=== PATIENT | female | born 1960 | race Caucasian/White ===

== ENCOUNTER → 2024-01-08 11:36 | Outpatient (REF) | payer OTHER, SELFPAY | LOC: HWWDC 11:36 | PROVIDERS: ATTENDING PHYSICIAN Nurse Practitioner Family; FAMILY PHYSICIAN Physician Assistant Medical | DX: Z12.31 Encounter for screening mammogram for malignant neoplasm of breast (principal) | CPT/HCPCS: 77063; 77067 ==

== ENCOUNTER 2024-12-15 09:21 | Emergency (ER) | payer OTHER, SELFPAY ==
[2024-12-15 09:25] VITALS: BP 144/95
[2024-12-15 09:54] VITALS: BMI 23.9
--- NOTE | 2024-12-15 10:28 | ED.GENMED ---
History of Present Illness
<Luzma Schaefer PA-C - Last Filed: 12/15/24 17:57>
General
Chief Complaint: Back Pain
Source: patient
Exam Limitations: none
Time Seen by Provider: 12/15/24 10:12
Nursing documentation reviewed up to this point in time: agreed with
History of Present Illness
History of Present Illness:
64-year-old female with a past medical history of hypertension, GERD present Emergency Department today with concerns of atraumatic left hip and back pain past 3 days patient reports that on Friday, she for started noticing pain in her left buttock.
Patient reports that the pain progressed and she felt it in her low back she also the pain radiate down her thigh. Occasionally, she feels the pain right down to her toes on that side. She describes the pain as a stabbing sensation. She states
that she has taken extra strength Tylenol did not touch the pain. She has never had pain like this before. She said it may be sciatica. She has no pain on the posing side. She is the inside injury. She denies any chest pain as of breath. She
denies any weakness in her lower extremities. Patient states that she lives alone and presents for a half states that she can barely walk without severe pain. She had to call EMS in order to get herself to the emergency room and felt in too much
pain to drive herself. She denies any fevers or chills. She has had no burning with urination, no hematuria.
Past History
<Luzma Schaefer PA-C - Last Filed: 12/15/24 17:57>
Past History
ED Past Medical History: HTN and Other (Anxiety)
ED Past Surgical History: Gynecological
Social History
Tobacco: Non-smoker
Alcohol: Occasional
Drug: None
Living: with family
Review of Systems
<Luzma Schaefer PA-C - Last Filed: 12/15/24 17:57>
Review of Systems
All Other Systems: ROS reviewed and negative except as documented in HPI and ROS
Phy Exam
<Luzma Schaefer PA-C - Last Filed: 12/15/24 17:57>
Physical Exam
Physical Exam:
General: Patient is well appearing and in no acute distress; non-toxic
Skin: Warm and dry, no rashes or lesions
Head: Normocephalic, atraumatic
Eyes: Sclera non-icteric. EOMs intact.
Cardiac: Regular rate and rhythm, no murmurs
Peripheral Vascular: No lower extremity edema, 2+ dorsalis pedis and posterior tibial pulses on the left
Pulm: Normal respiratory effort
Abdomen: No abdominal tenderness to palpation
Musculoskeletal: Negative straight leg bilaterally. Significant left hip pain noted when sitting up from supine position. No tenderness palpation of the hip joint, no paraspinal tenderness noted. 5 out of 5 strength in bilateral lower extremities.
Neuro: CN II-XII intact, no focal neurologic deficits.
Psychiatric: Appropriate mood and affect.
Course
<Luzma Schaefer PA-C - Last Filed: 12/15/24 17:57>
Orders/Labs/Results
Orders:
Orders
12/15/24 10:40
Ketorolac [Toradol] 30 mg IM NOW STA
CR Hip - LT w/wo Pel 2-3 Vw* Urgent
Comment:
Reason For Exam: left hip pain
Include a pelvis x-ray?: Yes
CR Lumbar Spine 2 Or 3 Views Urgent
Comment:
Reason For Exam: low back pain
12/15/24 10:47
Pt Eval And Treat Urgent
Activity Level: Ambulate
12/15/24 12:43
Urinalysis Urgent
Date Specimen was Collected: 12/15/24
Time Specimen was Collected: 12:29
Urine Microscopic Urgent
Date Specimen was Collected: 12/15/24
Time Specimen was Collected: 12:29
12/15/24 12:55
Oxycodone [Roxicodone] 5 mg PO NOW STA
12/15/24 13:14
IV Insert/Care/Rem.- Treatment PRN
12/15/24 13:31
Complete Blood Count/With Diff Urgent
Comprehensive Metabolic Panel Urgent
12/15/24 14:05
Dexamethasone Sod Phosphate [Decadron] 10 mg IV NOW STA
Morphine Sulfate 2 mg IV NOW STA
12/15/24 15:27
Morphine Sulfate 4 mg IV NOW STA
Ondansetron Injectable [Zofran] 4 mg IV NOW STA
12/15/24 17:03
Case Management Consult ONCE
Case Management Consult: VN/Home Care
Abnormal Lab Results
12/15/24 12/15/24
12:43 13:31
MCH 31.4 H pg
(27.0-31.0)
Absolute Lymphs (auto) 1.1 L 10^3/uL
(1.2-3.4)
Lymphocytes % 19.8 L %
(20.5-51.1)
Sodium 134 L mmol/L
(135-145)
Carbon Dioxide 21 L mmol/L
(22-30)
Ur Leukocyte Esterase Trace A
(Negative)
12/15/24 13:31
12/15/24 13:31
Vital Signs
Initial and Last Documented VS:
Initial Vital Signs
Temp Pulse Resp BP Pulse Ox
97.4 F 72 20 144/95 100
12/15/24 09:25 12/15/24 09:25 12/15/24 09:25 12/15/24 09:25 12/15/24 09:25
Last Documented Vital Signs
Temp Pulse Resp BP Pulse Ox
97.4 F 70 17 147/91 100
12/15/24 09:25 12/15/24 14:30 12/15/24 14:30 12/15/24 16:00 12/15/24 16:15
<Eagle Miranda, DO - Last Filed: 12/15/24 14:05>
Orders/Labs/Results
Orders:
Orders
12/15/24 10:40
Ketorolac [Toradol] 30 mg IM NOW STA
CR Hip - LT w/wo Pel 2-3 Vw* Urgent
Comment:
Reason For Exam: left hip pain
Include a pelvis x-ray?: Yes
CR Lumbar Spine 2 Or 3 Views Urgent
Comment:
Reason For Exam: low back pain
12/15/24 10:47
Pt Eval And Treat Urgent
Activity Level: Ambulate
12/15/24 12:43
Urinalysis Urgent
Date Specimen was Collected: 12/15/24
Time Specimen was Collected: 12:29
Urine Microscopic Urgent
Date Specimen was Collected: 12/15/24
Time Specimen was Collected: 12:29
12/15/24 12:55
Oxycodone [Roxicodone] 5 mg PO NOW STA
12/15/24 13:14
IV Insert/Care/Rem.- Treatment PRN
12/15/24 13:31
Complete Blood Count/With Diff Urgent
Comprehensive Metabolic Panel Urgent
12/15/24 14:05
Dexamethasone Sod Phosphate [Decadron] 10 mg IV NOW STA
Morphine Sulfate 2 mg IV NOW STA
12/15/24 15:27
Morphine Sulfate 4 mg IV NOW STA
Ondansetron Injectable [Zofran] 4 mg IV NOW STA
12/15/24 17:03
Case Management Consult ONCE
Case Management Consult: VN/Home Care
Abnormal Lab Results
12/15/24 12/15/24
12:43 13:31
MCH 31.4 H pg
(27.0-31.0)
Absolute Lymphs (auto) 1.1 L 10^3/uL
(1.2-3.4)
Lymphocytes % 19.8 L %
(20.5-51.1)
Sodium 134 L mmol/L
(135-145)
Carbon Dioxide 21 L mmol/L
(22-30)
Ur Leukocyte Esterase Trace A
(Negative)
12/15/24 13:31
12/15/24 13:31
Vital Signs
Initial and Last Documented VS:
Initial Vital Signs
Temp Pulse Resp BP Pulse Ox
97.4 F 72 20 144/95 100
12/15/24 09:25 12/15/24 09:25 12/15/24 09:25 12/15/24 09:25 12/15/24 09:25
Last Documented Vital Signs
Temp Pulse Resp BP Pulse Ox
97.4 F 70 17 147/91 100
12/15/24 09:25 12/15/24 14:30 12/15/24 14:30 12/15/24 16:00 12/15/24 16:15
Gayelt;Luzma Schaefer PA-C - Last Filed: 12/15/24 17:57>
MDM/Problems Addressed
Differential Diagnosis Includes:
Herniated disc, degenerative disc disease, osteoarthritis, spinal stenosis, hip sprain/strain
MDM/Problems Addressed:
64-year-old female presents urgency today with concerns of atraumatic left buttocks pain radiating to the leg and lower back for the past few days. Patient states that the pain is so severe that she can barely ambulate without significant pain and
had to call EMS in order to arrive to emergency department today. She has taken extra strength Tylenol relief. Symptoms at this time most suspicious for sciatica, will send for x-rays as initial study, will give an IM shot of Toradol, will get a
urinalysis for any hematuria, will get PT eval and reassess.
On reassessment, patient still has a lot of persistent pain and completely unable to ambulate. Will give a dose of oxycodone. No concern for ruptured AAA or any concerning aortic pathology at this time as patient has no abdominal mass, along
distal pulses, intervals are stable. X-rays show degenerative changes no acute osseous abnormality.
On reassessment, had discussion with physical therapy and it appears that patient is not able to complete any physical repeat assessment due to her severe pain, she tried to ambulate patient and patient was not able to stand whatsoever. Place IV
give dose of morphine and check labs.
On reassessment, patient still has severe pain and unable to ambulate. We did obtain urine sample which shows no evidence of hematuria. Did consult with my attending, will give 4 mg more of pain.
Notified by nursing staff that patient still has issues with ambulating and is not able to take steps without severe pain. Will plan to admit for tractable pain.
On reassessment prior to discharge, patient states that she is like she can finally ambulate and is requesting to go home. I did personally observed patient ambulate around the room without difficulty and did observe her stand from a sitting
position without difficulty. Patient lives alone in a multistory home and is concerned about getting around. Patient states that she does have access to a bathroom in the bedroom first floor patient states that she will stay here. We again had a
discussion about pros and cons of admission. Considering patient cannot ambulate, I think discharge home is reasonable. Case management is aware on for the day, I did leave a message with case management office and place a consult patient will be
called our morning to probably set up home physical therapy versus home nursing care to help as injury resolved. Suspect more strain as he did not started to happen after shoveling snow over a disc is also a possibility. Patient will be sent home
with a short steroid burst encouraged to take, as well. Patient stable for discharge.
Chronic conditions affecting care:
GERD, HTN, anxiety
Acute Exacerbation and/or Progression of Chronic Illness:
n/a
<Luzma Schaefer PA-C - Last Filed: 12/15/24 17:57>
*Pulse Oximetry
Patient hypoxic: no
*Critical Care Note
Total Time (30-74mins, 75-104mins- exclusive of procedures): Not Applicable
Data Reviewed
Review of Other/Old Records Reveals: Records (Reviewed [facility] reviewed prior discharge summary from 06/13/2014 patient seen for chest pain) and Discharge Summary (Reviewed discharge summary from 07/02/2008 patient seen for pelvic inflammatory disease
with pelvic ovarian abscess)
Source: patient and records
Prescriptions/Medications Considered But Not Given:
n/a
Further Testing Considered But Not Given:
n/a
<Luzma Schaefer PA-C - Last Filed: 12/15/24 17:57>
Patient Management
Escalation/DeEscalation of care consider admission/obs:
admit not indicated patient stable for discharge
<Luzma Schaefer PA-C - Last Filed: 12/15/24 17:57>
Update Note
Update Note:
Upon further discussion with patient, patient recalls that this may started after shoveling snow. Patient reports that 2 days ago, she was shoveling snow on Friday and reports that she was doing this for hours and is a very active.
ED Attending Note
<Luzma Schaefer PA-C - Last Filed: 12/15/24 17:57>
-
Portions of this chart may have been created with voice recognition software.� Occasional wrong word or��sound alike� substitutions may have occurred due to the inherent limitations of voice recognition software.
<Eagle Miranda DO - Last Filed: 12/15/24 14:05>
ED Attending Note
Patient seen and examined by attending physician: Yes
I performed the substantive portion of visit, reviewed & personally made and approve the management plan that is documented in note by myself or GRIS.: Yes
ED Attending Note:
Seen with PA examined independently 64-year-old female limited past medical history acute onset of the left hip low back pain into the thigh and knee, worse with movement better with rest no fevers, multiple medication intolerances, labs noted,
x-ray noted, symptoms are clearly positional, worse with movement, try to get her comfortable
Discharge Plan
Departure
Patient Disposition: Home (Routine Discharge)
Date of Disposition: 12/15/24
Time of Disposition: 17:07
Patient with high blood pressure during this ER visit?: Yes
Condition: Good
Discharge Problem:
Lumbosacral strain
Instructions: Low Back Pain (DC), Radiculopathy (DC), BLOOD PRESSURE
Prescriptions:
New
prednisone 20 mg tablet
40 mg PO DAILY 5 Days Qty: 10 0RF
No Action
nortriptyline 75 MG capsule
75 mg PO HS
lisinopril 10 MG tablet
15 mg PO DAILY
Referrals:
Rigoberto Villalobos MD [Active] -
Ellyn Mcdonnell PA-C [Family Provider] -
Activity Restrictions/Additional Instructions:
I left a message with the case management office. You should receive a call tomorrow morning to discuss setting up a home nurse.
I attached the number for [facility] orthopedic nurse practitioner. I recommend calling the number tomorrow morning to schedule an appointment, you need an MRI to further evaluate your symptoms.
Prednisone has been sent to your pharmacy. Starting tomorrow please take for 40 mg once daily for 5 days. I also recommend taking Tylenol with this, please take 1g every 6 hours. Please do not exceed 4 g in 1 day.
PLEASE RETURN EMERGENCY DEPARTMENT SHOULD YOU EXPERIENCE CHEST PAIN, SHORTNESS OF BREATH, INABILITY TO AMBULATE, SADDLE ESTHESIA'S, URINARY OR FECAL INCONTINENCE, FEVERS OR CHILLS, SICK EPISODES, OR ANY OTHER SIGNS OR SYMPTOMS WORRISOME TO YOU
Interventions
Interventions:
*Risk Screen - Suicide Last Done: 12/15/24 09:25
*General Assessment Last Done: 12/15/24 17:46
*Neglect/Abuse Screening Last Done: 12/15/24 13:44
ED- Fall Risk Assessment Last Done: 12/15/24 09:57
*ED COVID-19 Vaccine History Last Done: 12/15/24 09:56
*Nursing Disposition Last Done: 12/15/24 17:46
ED-Musculoskeletal Assessment Last Done: 12/15/24 09:54
Discharge Date and Time
Print Language: VENEZUELAN
[2024-12-15] MEDS: TORADOL 30 MG IM (10:53)
[2024-12-15 12:52] LABS: Urine Albumin Trace (Neg - Trace); Urine Bilirubin Negative (Negative); Urine Character Clear (Clear); Urine Color Yellow; Urine Glucose Negative (Negative); Urine Ketone Negative (Negative); Urine Leukocyte Trace (Negative); Urine Nitrite Negative (Negative); Urine Occult Blood Negative (Negative); Urine Urobilinogen Negative (Neg - 1+); Urine pH 6.5 (5.0-9.0)
[2024-12-15] MEDS: ROXICODONE 5 MG PO (12:58)
[2024-12-15 13:05] LABS: Urine Mucus Few; Urine Squamous Cell >30 /LPF (Few)
[2024-12-15 13:08] LABS: Urine Amorphous Seen
[2024-12-15 13:09] LABS: Urine Red Blood Cell 0-2 /HPF (0-2)
[2024-12-15 13:40] LABS: % Basophils 0.4 % (0-2); % Eosinophils 1.1 % (0-6); % Immature Granulocytes 0.4 % (0-0.5); % Lymphocytes 19.8 % (20.5-51.1); % Monocytes 5.7 % (1.7-9.3); % Neutrophils 72.6 % (42.2-75.2); Absolute Eosinophils 0.1 10^3/uL (0-0.7); Absolute Lymphocytes 1.1 10^3/uL (1.2-3.4); Absolute Monocytes 0.3 10^3/uL (0.1-0.6); Hematocrit 39.2 % (37.0-47.0); Hemoglobin 13.7 g/dL (12.0-16.0); Mean Corp Hgb Conc. 34.9 g/dL (33.0-37.0); Mean Corpuscular Hgb 31.4 pg (27.0-31.0); Mean Corpuscular Volume 89.9 fL (81.0-99.0); Mean Platelet Volume 9.6 fL (7.4-10.4); Nucleated Red Blood Cells % 0 %; Platelet Count 208 10^3/uL (130-400); Red Blood Cell Count 4.36 10^6/uL (4.20-5.40); Red Cell Dist. Width 12.6 % (11.5-14.5); White Blood Cell Count 5.5 10^3/uL (4.8-10.8)
[2024-12-15 13:50] LABS: Sodium 134 mmol/L (135-145)
[2024-12-15 13:51] LABS: ALT (SGPT) 27 U/L (0-35); AST (SGOT) 32 U/L (14-36); Albumin 4.6 g/dl (3.5-5.0); Alkaline Phosphatase 55 U/L (38-126); Blood Urea Nitrogen 12 mg/dl (7-17); Calcium 9.2 mg/dl (8.4-10.2); Carbon Dioxide 21 mmol/L (22-30); Chloride 103 mmol/L (98-107); Estimated Creatinine Clearance 71 ml/min; Glucose 98 mg/dl (70-99); Potassium 4.2 mmol/L (3.5-5.1); Total Bilirubin 0.5 mg/dl (0.2-1.3); Total Protein 7.2 g/dl (6.3-8.2); eGFR > 60.00
[2024-12-15 14:00] VITALS: BP 133/96
[2024-12-15 14:10] VITALS: BP 154/91
[2024-12-15] MEDS: MORPHINE SULFATE 2 MG IV (14:26)
[2024-12-15] MEDS: DECADRON 10 MG IV (14:26)
[2024-12-15 14:30] VITALS: BP 127/87
[2024-12-15] MEDS: MORPHINE SULFATE 4 MG IV (15:32)
[2024-12-15] MEDS: ZOFRAN 4 MG IV (15:32)
[2024-12-15 15:38] VITALS: BP 129/94
[2024-12-15 16:00] VITALS: BP 147/91
== END 2024-12-15 17:47 | disposition home or self-care (01) ==
LOC: EMR 09:21
PROVIDERS: Physician Assistant; EMERGENCY PHYSICIAN Emergency Medicine; FAMILY PHYSICIAN Physician Assistant Medical
DX: S39.012A Strain of muscle, fascia and tendon of lower back, initial encounter (principal); X58.XXXA Exposure to other specified factors, initial encounter; I10 Essential (primary) hypertension; K21.9 Gastro-esophageal reflux disease without esophagitis; Z60.2 Problems related to living alone
CPT/HCPCS: 96374; 96375; 96376; 96372; 99284; 72100; 73502; 80053; 81003; 81015; 85025

== ENCOUNTER → 2025-07-27 12:24 | Outpatient (REF) | payer OTHER, SELFPAY | LOC: HWRAD 12:24 | PROVIDERS: ATTENDING PHYSICIAN Physician Assistant Medical | DX: M79.671 Pain in right foot (principal) | CPT/HCPCS: 73630 ==

== ENCOUNTER 2025-11-22 11:39 | Emergency (ER) | payer OTHER, SELFPAY ==
[2025-11-22 12:12] VITALS: BP 164/79
[2025-11-22 12:49] LABS: Hematocrit 35.3 % (37.0-47.0); Hemoglobin 12.5 g/dL (12.0-16.0); Mean Corp Hgb Conc. 35.4 g/dL (33.0-37.0); Mean Corpuscular Volume 89.1 fL (81.0-99.0); Nucleated Red Blood Cells % 0 %; Platelet Count 195 10^3/uL (130-400); Red Cell Dist. Width 12.4 % (11.5-14.5)
[2025-11-22 14:30] VITALS: BP 134/93
[2025-11-22 15:33] VITALS: BP 151/97
[2025-11-22 15:58] LABS: ALT (SGPT) 33 U/L (0-35); AST (SGOT) 36 U/L (14-36); Albumin 4.9 g/dl (3.5-5.0); Alkaline Phosphatase 43 U/L (38-126); Blood Urea Nitrogen 15 mg/dl (7-17); Calcium 9.5 mg/dl (8.4-10.2); Carbon Dioxide 24 mmol/L (22-30); Chloride 101 mmol/L (98-107); Glucose 92 mg/dl (70-99); Potassium 4.5 mmol/L (3.5-5.1); Sodium 132 mmol/L (135-145); Total Protein 7.9 g/dl (6.3-8.2); eGFR > 60.00
[2025-11-22 16:00] VITALS: BP 153/87
--- NOTE | 2025-11-22 16:02 | ED.GENMED ---
History of Present Illness
General
Chief Complaint: Fainting/Passed Out
Source: patient
Exam Limitations: none
Time Seen by Provider: 11/22/25 15:23
History of Present Illness
History of Present Illness:
Patient with a syncopal episode while in the doctor's office. She has had ongoing blood pressure issues. Blood pressures have been elevated. She has had doubling of her losartan. Also on amlodipine. She has had previous episodes of syncope.
There was prodromal symptoms. In addition she has been having intermittent chest pain nonexertional in nature. However she did ambulate on the treadmill 2 miles today without issues. Strong cardiac. The family
Past History
Past History
ED Past Medical History: HTN and Other (Anxiety)
ED Past Surgical History: Gynecological
Social History
Tobacco: Non-smoker
Alcohol: Occasional
Drug: None
Living: with family
Review of Systems
Review of Systems
All Other Systems: Not applicable
Respiratory: Reports no symptoms
ABD/GI: Reports no symptoms
Phy Exam
Physical Exam
Physical Exam:
GENERAL: Alert and oriented in no apparent distress
EYE: Orbits normal.
NECK: Supple, no significant adenopathy.
ENT: Pharynx without erythema
CARDIAC: Regular rate and rhythm without any obvious murmurs.
LUNGS: Clear breath sounds,normal
ABDOMEN: Soft, without focal tenderness or distention
NEUROLOGICAL: Alert and oriented , grossly non-focal
SKIN: Warm and dry, no rash or lesion, no discoloration, skin intact.
MUSCULOSKELETAL: No edema,no deformity.Good color
PSYCH: Normal and appropriate interaction.
Course
Orders/Labs/Results
Orders:
Orders
11/22/25 11:40
EKG [Electrocardiogram (*1)] Urgent
Reason for Study: Syncope
EKG- Treatment ONCE
11/22/25 12:28
Complete Blood Count/With Diff Urgent
INF RAPID [Influenza A+B Rapid Molecular] Urgent
MARCELL Source: Nasal Swab
Specimen Description:
11/22/25 15:33
Comprehensive Metabolic Panel Urgent
Troponin I Urgent
Abnormal Lab Results
11/22/25 11/22/25
12:28 15:33
RBC 3.96 L 10^6/uL
(4.20-5.40)
Hct 35.3 L %
(37.0-47.0)
MCH 31.6 H pg
(27.0-31.0)
Lymphocytes % 19.6 L %
(20.5-51.1)
Sodium 132 L mmol/L
(135-145)
11/22/25 12:28
11/22/25 15:33
Vital Signs
Initial and Last Documented VS:
Initial Vital Signs
Temp Pulse Resp BP Pulse Ox
97.5 F 58 17 164/79 100
11/22/25 12:12 11/22/25 12:12 11/22/25 12:12 11/22/25 12:12 11/22/25 12:12
Last Documented Vital Signs
Temp Pulse Resp BP Pulse Ox
97.9 F 66 12 122/77 100
11/22/25 16:00 11/22/25 17:00 11/22/25 17:00 11/22/25 17:00 11/22/25 17:00
MDM/Problems Addressed
Differential Diagnosis Includes:
Today's episode described as very likely vasovagal. This all occurred while she was getting ready to have blood drawn and passed out briefly. No trauma. This has happened previously. There is deafly prodromal symptoms. However she is also been
having intermittent episodes of nonexertional chest tightness. There is a strong family history of cardiac disease. She did ambulate on a treadmill for 2 miles today without issues which would make cardiac somewhat less likely. Finally she has
significant blood pressure issues. I will ask for cardiology's opinion.
*Pulse Oximetry
SaO2: 100
Oxygen Mode of Delivery: Room air
Patient hypoxic: no (100)
*Critical Care Note
Total Time (30-74mins, 75-104mins- exclusive of procedures): Not Applicable
Data Reviewed
Review of Other/Old Records Reveals: Labs, Records and Testing
Update Note
Update Note:
Patient seen and cleared by cardiology. Blood pressure adjustments.
ED Attending Note
-
Portions of this chart may have been created with voice recognition software.� Occasional wrong word or��sound alike� substitutions may have occurred due to the inherent limitations of voice recognition software.
Discharge Plan
Departure
Patient Disposition: Home (Routine Discharge)
Date of Disposition: 11/22/25
Time of Disposition: 17:52
Patient with high blood pressure during this ER visit?: Yes
Discharge Problem:
Syncope, Hypertension, Intermittent chest pain
Instructions: Syncope (Fainting) (DC), Chest pain (DC), BLOOD PRESSURE
Prescriptions:
No Action
nortriptyline 75 MG capsule
75 mg PO HS
lisinopril 10 MG tablet
15 mg PO DAILY
prednisone 20 mg tablet
40 mg PO DAILY 5 Days Qty: 10 0RF
Referrals:
Ellyn Mcdonnell PA-C [Family Provider, Family Practice]
David Berg II, MD [Non-Admitting Privileges, Orthopedics]
Bharath Berg MD [Active, Cardiology] - Next open appointment
Activity Restrictions/Additional Instructions:
Medication adjustments per cardiology
Follow-up closely with cardiology
Good luck to Phoebe!
Interventions
Interventions:
*General Assessment Last Done: 11/22/25 18:04
*Neglect/Abuse Screening Last Done: 11/22/25 12:12
*ED COVID-19 Vaccine History Last Done: 11/22/25 18:04
*ED Influenza Vaccine History Last Done: 11/22/25 18:04
[facility] Risk Assessment Tool Last Done: 11/22/25 11:39
*Risk Screen - Suicide (C-SSRS) Last Done: 11/22/25 12:12
*Nursing Disposition Last Done: 11/22/25 18:04
ED- Cardiac Assessment Last Done: 11/22/25 16:32
ED- Neurological Assessment Last Done: 11/22/25 16:32
Discharge Date and Time
Discharge Date/Time: 11/22/25 18:05
Print Language: FAROESE
[2025-11-22 16:08] LABS: Troponin I 0.015 ng/ml
--- NOTE | 2025-11-22 16:57 | CON.CAR ---
Addendum entered and electronically signed by Bharath Berg MD 11/22/25 17:46:
I saw and evaluated the patient, and I provided the substantive portion of the medical decision making.
I reviewed and agree with the note by Shayy David and it accurately reflects our care.
I personally performed the medical decision making of the this encounter and my assessment and plan is below:
65-year-old female with a past medical history of labile hypertension, syncope and family history. Her coronary artery disease presents with a syncopal episode while at the doctor's office. She was said to have her blood drawn and began to feel
lightheaded and dizzy and had syncope. Additionally, she has been feeling 'loopy' since recent medication changes after report of markedly elevated hypertension. She had blood pressures in the 200s. With this, her chest did feel tight. Losartan
was increased from 25 mg a day to 50 mg a day and amlodipine was added at the same time. Throughout the day now she notices her blood pressure is markedly improved but in the 90s by the time she goes to bed. Typically, she feels well otherwise.
She has been going for walks consistently. Until she recently hurt her ankle she was doing 8 miles a day now doing 2 to 4 miles. Of note with her ankle injury she was taking more NSAIDs. She does watch her salt.
Regular rate and rhythm no murmur rubs or gallops lungs clear to auscultation a lower area today at 3. Extremities are warm well-perfused.
EKG shows Sinus bradycardia.
Assessment:
Vasovagal syncope
Labile hypertension with no overcorrection
Chest tightness in the setting of marked hypertension
Plan:
Discussed the recurrent nature of vasovagal syncope. Danger is an injury that would incur with syncopal episode should she ignore the prodromal symptoms. Reviewed the prodromal symptoms. She should lie down and raise her legs if able in the very
least sit down when these excess.
BP now overcorrected. She will stop her amlodipine. Continue losartan 50 mg once a day. Begin a home blood pressure log in 3 days and send to our office. We reviewed sodium restriction. Avoid NSAID use.
Would consider echocardiogram with possible stress testing in the outpatient setting.
Okay to discharge. I will ask my office to reach out with follow-up.
Original Note:
Consultation
Consultation Request
Date/Time Consultation Requested: 11/22/2025 16:00
Date/Time Consultation Performed: 11/22/2025 16:30
Requesting Provider: Dr. Stack
Performing Provider: ALVARO Danielson for Dr. Berg
Reason for Consultation: Syncope, hypertension
Medical History
-
Chief Complaint: Syncope
History of Present Illness:
Christy Dahl is a 65-year-old female (known to Dr. Stevenson, her primary key bed installer), with labile hypertension, deglutition syncope, and family history of premature CAD who presents after having a syncopal episode. She presented for her PCP
yearly physical exam. She has been feeling unwell. She has been experiencing lightheadedness and dizziness. She endorses feeling 'loopy' since changes have been made to her antihypertensive regimen. While her blood work was being obtained she
had a syncopal event. EMS was called and she was referred to the emergency department. She exercises regularly. She walked for 2 miles this morning and felt 'great' during her walk. Usually she walks 4 miles per day and feels well doing this.
Cardiology was consulted for BP management in the setting of syncope.
Past Medical History
Past Medical History: HTN
Social History
Tobacco: Non-Smoker
Alcohol: Daily (1 drink daily)
Drug: None
Family History
Family History: Early CAD (Father had IA at age 42.)
Allergies / Home Medications
Allergy/AdvReac Type Severity Reaction Status Date / Time
acetaminophen (From Percocet) Allergy Vomiting Verified 11/22/25 12:12
nitrofurantoin (From Allergy hallucinati Verified 11/22/25 12:12
Macrobid) ons
nitrofurantoin Allergy hallucinati Verified 11/22/25 12:12
macrocrystalline (From ons
Macrobid)
omeprazole (From Prilosec) Allergy Anaphylaxis Verified 11/22/25 12:12
oxycodone HCl (From Percocet) Allergy Vomiting Verified 11/22/25 12:12
Sulfa (Sulfonamide Allergy Nausea / Verified 11/22/25 12:12
Antibiotics) Vomiting
sulfamethoxazole (From Allergy Unknown Verified 11/22/25 12:12
Bactrim)
trimethoprim (From Bactrim) Allergy Unknown Verified 11/22/25 12:12
�Medication �Instructions �Recorded �Confirmed �Type
nortriptyline 75 mg capsule 75 mg PO HS 07/02/08 06/13/14 History
lisinopril 10 mg tablet 15 mg PO DAILY 06/13/14 06/13/14 History
prednisone 20 mg tablet 40 mg (2 x 20 mg) PO DAILY 5 days 12/15/24 Rx
#10 tabs
Review of Systems
-
History Source: Patient
All other systems: Negative unless noted
Constitutional: No Symptoms
EENT: No Symptoms
Respiratory: No Symptoms
Cardiac: No Symptoms
Abdomen/GI: No Symptoms
: No Symptoms
Musculoskeletal: No Symptoms
Skin: No Symptoms
Neurological: No Symptoms
Endocrine: No Symptoms
Hematologic/Lymphatic: No Symptoms
Physical Exam
Vital Signs
Temp Pulse Resp BP Pulse Ox
97.9 F 62 12 153/87 100
11/22/25 16:00 11/22/25 16:15 11/22/25 16:15 11/22/25 16:00 11/22/25 16:15
Lab Results
11/22/25 12:28
11/22/25 15:33
Troponin I 0.015 ng/ml 11/22/25 15:33
Physical Exam
General: Well Developed, Well Nourished, No Apparent Distress and Comfortable
HEENT: Normocephalic, Anicteric and Moist Mucous Membranes
Respiratory: Clear and Non Labored Respirations
Cardiac: S1/S2 and Regular Rhythm; Negative Peripheral Edema
Breast: Deferred by me
GI: Soft, Non Tender, Non Distended and Normal Bowel Sounds
Rectal: Deferred by Provider
Genito-urinary: No Costovertebral Tender
Musculoskeletal: No Clubbing and No Cyanosis
Skin: Warm and Dry
Neuro: AO x 3
Hematologic/Lymphatic: No Lymphadenopathy
Psych: Calm
Impression / Plan
-
I/P: 65F with labile hypertension, deglutition syncope, and family history of premature CAD who presents after having a syncopal episode.
Primary key bed installer: Dr. Stevenson
Syncope, vasovagal
Labile hypertension
- Blood pressure was 190s/100s prior to increasing losartan from 25 mg to 50 mg and amlodipine 2.5 mg was added
- BP 4 to 5 hours after medication 120/80, 90s/60s in the evening
- Stop amlodipine
Family history of premature CAD, continue risk factor modification
Data Reviewed
-
EKG: Report Reviewed by me
Medical Tests (Nuc Med, Echo etc): Report Reviewed by me
Labs: Labs Reviewed by me
Old Records: Reviewed
[2025-11-22 17:00] VITALS: BP 122/77
[2025-11-22 17:06] VITALS: BMI 23.3
== END 2025-11-22 18:05 | disposition home or self-care (01) ==
LOC: EMR 11:39
PROVIDERS: Emergency Medicine; EMERGENCY PHYSICIAN Emergency Medicine; FAMILY PHYSICIAN Physician Assistant Medical
DX: R55 Syncope and collapse (principal); I10 Essential (primary) hypertension; Z79.899 Other long term (current) drug therapy; Z82.49 Family history of ischemic heart disease and other diseases of the circulatory system
CPT/HCPCS: 99284; 80053; 84484; 85025; 87502; 93005